=== PATIENT | male | born 1995 | race Caucasian/White ===

== ENCOUNTER 2021-11-11 20:29 | Emergency (ER) | payer OTHER, SELFPAY ==
[2021-11-11 21:09] VITALS: BP 139/92; PULSE 94; RESP 18; TEMP 36.4; O2SAT 99; BMI 35.5
[2021-11-12 03:10] VITALS: BP 130/88; PULSE 78; RESP 18; TEMP 36.3; O2SAT 98
--- NOTE | 2021-11-12 07:34 | ED.GENADULT ---
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 complaining of left index finger laceration, he placed super glue on his finger (left index) palmar aspect, he states that he could not control the bleeding Onset (ago): hour(s) (12) Location: left (Index finger) Radiation: non-radiation Severity: mild Quality: burning Pain Consistency: constant Relieving factors: none Related Data Allergies Allergy/AdvReac Type Severity Reaction Status Date / Time No Known Allergies Allergy Unverified 12/10/19 18:08 Review of Systems ENT: Reports system reviewed and no additional complaints, except as documented Cardiovascular: Cardiovascular: Reports no additional cardiovascular complaints Respiratory: Respiratory: Reports no additional respiratory complaints Gastrointestinal: Gastrointestinal: Reports no additional gastrointestinal complaints Psychiatric: Psychiatric: Reports no additional psychiatric complaints PMFSH Social History Social History Advance Directives: No Advance Directives Information Provided: Yes Physical Exam ED Vital Signs: Vital Signs - 24 hr 11/11/21 21:09 11/12/21 03:10 Temperature 97.5 F 97.4 F Pulse Rate 94 78 Respiratory Rate 18 18 Blood Pressure 139/92 H 130/88 Pulse Oximetry 99 98 Oxygen Delivery Method Room Air Room Air BMI result Body Mass Index 35.5 Const Other: He looks well, he is not toxic-appearing General: cooperative, healthy appearing, comfortable, no acute distress, well developed, alert and awake Nutritional Appearance: average body habitus Orientation/consciousness: patient oriented x3 Limitations: no limitations HENMT Other: Nose mouth throat within normal Head: Yes normal to inspection Face and sinus: Yes normal facial exam Eyes Conjunctivae: conjunctivae normal Chest Chest palpation & inspection: normal inspection of the chest Resp Effort & Inspection: normal respiratory effort Cardio Rate: regular rate GI Inspection: Yes normal to inspection Neuro General: patient oriented x3 Extrem Other: Examination of the left index finger shows a full range of motion normal sensation, in the palmar aspect there is super glue and I am unable to visualize the laceration the wound is no bleeding Course Reevaluation(s) Reevaluation #1: Super glue was removed the wound was clean with saline and peroxide, patient at this point refused Dermabond , refuses stitches he has about a 1/2 cm superficial laceration in the middle Phalanx left index finger palmar aspect Discharge Plan Discharge Clinical Impression: Laceration Patient Disposition: Home, Self-Care Instructions: Finger Laceration (ED) Additional Instructions: Return if worse ,o fever , drainage from the wound, you declined t Dermabond you declined the stitches as well Stand Alone Forms: Work/School Release Interventions: ED Discharge Assessment Last Done: 11/12/21 08:12 Discharge Date/Time: 11/12/21 08:13
--- NOTE | 2021-11-12 08:02 | PC.NURSE ---
pt refused dermabond and sutures to md- plan for dc home
== END 2021-11-12 08:13 | disposition home or self-care (01) ==
PROVIDERS: Emergency Provider Emergency Medicine
DX: S61.210A Laceration without foreign body of right index finger without damage to nail, initial encounter (principal); X58.XXXA Exposure to other specified factors, initial encounter; Y93.9 Activity, unspecified; Y92.9 Unspecified place or not applicable; Y99.9 Unspecified external cause status
CPT/HCPCS: 12001; 99282; 99283

== ENCOUNTER 2022-03-03 13:42 | Emergency (ER) | payer OTHER, SELFPAY ==
[2022-03-03 14:07] VITALS: PULSE 90; RESP 18; TEMP 36.7; O2SAT 98; BMI 30.4
--- NOTE | 2022-03-03 14:47 | ED.WOUNDLAC ---
HPI - Wound/Laceration General Chief Complaint: Wound/Laceration Stated Complaint: l middle finger laceration work related Time Seen by Provider: 03/03/22 14:37 Source: patient Mode of arrival: ambulatory Limitations: no limitations History of Present Illness HPI narrative: 26-year-old male presents to the ER for evaluation of a wound to his left middle finger. He states he was cutting scalp he was at work when he accidentally cut the tip of his finger off. There was immediate pain and bleeding. He put pressure on the wound with controlling of the bleeding. He is able to bend and extend the distal interphalangeal joint. He states there is some of the nail missing. No numbness, tingling, weakness. He states his last tetanus shot was about 10 years ago. Onset (ago): hour(s) Place: work Patient tetanus UTD: No Context: accidental Associated symptoms: pain Treatments prior to arrival: bandage Related Data Allergies Allergy/AdvReac Type Severity Reaction Status Date / Time No Known Allergies Allergy Unverified 12/10/19 18:08 Review of Systems Review of Systems: Constitutional: No Fever, No Chills Cardiovascular: No Chest Pain, No SOB, Gastrointestinal: No Nausea, No Vomiting Musculoskeletal: No joint pain Skin: + Skin Lesions, No rash Neuro: No Weakness, No Numbness Psych: + Anxiety/Panic Heme/Lymph: No Bruising PMFSH Social History Social History Advance Directives: No Advance Directives Information Provided: No Physical Exam Vital Signs: Vital Signs: Last Vital Signs Temp 98.1 F 03/03/22 14:07 Pulse 90 03/03/22 14:07 Resp 18 03/03/22 14:07 Pulse Ox 98 03/03/22 14:07 O2 Del Method 03/03/22 14:07 BMI result Body Mass Index 30.4 Appearance: Alert. Oriented X3. No acute distress. HEENT: normal inspection CVS: Normal heart rate and rhythm. Pulses normal. Respiratory: No respiratory distress. Skin: Skin warm and dry. Normal skin color. Normal skin turgor. No rashes. Extremities: Left middle finger with an approximately 1 cm round complete avulsion of the distal tip including a small portion of the nail. There is a clot formed with no active bleeding. Normal sensation, normal range of motion the D IP and PIP joints. Neuro: Oriented X 3. No motor deficit. No sensory deficit. Course Course Course Narrative: 26-year-old male presents to the ER for evaluation of left middle finger avulsion. There is complete avulsion with loss of the portion of the tip, with some nail involvement. No active bleeding. Low risk for infection. Wound was cleansed with sterile saline and antiseptic. Dermabond was used to provide a protective barrier. Wound care was discussed with the patient. Tdap given. Stable for discharge home. Discharge Plan Discharge Clinical Impression: Avulsion of skin Patient Disposition: Home, Self-Care Instructions: Skin Avulsion (ED) Additional Instructions: Skin glue was used to cover the wound today. This will cough on its own. Do not peel it off. Do not get wet for least 24 hours. After that you can gently let water run over it then pat dry. Keep covered and clean. If you develop signs and symptoms of infection call your doctor come back to the ER for further evaluation
[2022-03-03] MEDS: Diphth,Pertus(ACell),Tet Adult 0.5 ML SYRINGE IM (14:55)
== END 2022-03-03 14:57 | disposition home or self-care (01) ==
PROVIDERS: Emergency Provider Emergency Medicine
DX: S61.313A Laceration without foreign body of left middle finger with damage to nail, initial encounter (principal); W26.0XXA Contact with knife, initial encounter; Y93.G1 Activity, food preparation and clean up; Y92.511 Restaurant or cafe as the place of occurrence of the external cause; Y99.0 Civilian activity done for income or pay
CPT/HCPCS: 12001; 90471; 90715; 99282; 99284